=== PATIENT | male | born 1960 | race Caucasian/White ===

== ENCOUNTER → 2024-04-05 06:46 | Day surgery (SDC) | payer OTHER, MEDICARE, SELFPAY | LOC: GI 06:46 | PROVIDERS: ATTENDING PHYSICIAN Internal Medicine | DX: Z12.11 Encounter for screening for malignant neoplasm of colon (principal); D12.0 Benign neoplasm of cecum; D12.3 Benign neoplasm of transverse colon; K63.5 Polyp of colon; N40.2 Nodular prostate without lower urinary tract symptoms; K57.30 Diverticulosis of large intestine without perforation or abscess without bleeding; Z98.890 Other specified postprocedural states; Z86.010 Personal history of colon polyps | CPT/HCPCS: 45385; 45380; 88305 ==

== ENCOUNTER → 2024-04-19 13:49 | Outpatient (REF) | payer OTHER, MEDICARE, SELFPAY | LOC: RAD 13:49 | PROVIDERS: ATTENDING PHYSICIAN Nurse Practitioner | DX: R20.2 Paresthesia of skin (principal) | CPT/HCPCS: 72050 ==

== ENCOUNTER → 2024-04-23 07:31 | Outpatient (REF) | payer OTHER, MEDICARE, SELFPAY | LOC: EMG 07:31 | PROVIDERS: ATTENDING PHYSICIAN Nurse Practitioner | DX: R20.2 Paresthesia of skin (principal) | CPT/HCPCS: 95886; 95911 ==

== ENCOUNTER 2024-12-06 06:32 | Day surgery (SDC) | payer OTHER, MEDICARE, SELFPAY ==
[2024-12-06 09:36] LABS: Glucose - Point of Care 89 mg/dl (70-99)
== END 2024-12-06 11:45 | disposition home or self-care (01) ==
LOC: GI 06:32
PROVIDERS: ATTENDING PHYSICIAN Internal Medicine
DX: R13.14 Dysphagia, pharyngoesophageal phase (principal); K22.2 Esophageal obstruction; K22.89 Other specified disease of esophagus; K21.00 Gastro-esophageal reflux disease with esophagitis, without bleeding; K90.0 Celiac disease; K31.89 Other diseases of stomach and duodenum
CPT/HCPCS: 43239; 88305; 82962; 88342

== ENCOUNTER → 2024-12-31 08:50 | Outpatient (REF) | payer OTHER, MEDICARE, SELFPAY | LOC: RAD 08:50 | PROVIDERS: ATTENDING PHYSICIAN Internal Medicine; FAMILY PHYSICIAN Internal Medicine | DX: R93.3 Abnormal findings on diagnostic imaging of other parts of digestive tract (principal) | CPT/HCPCS: 74246 ==